=== PATIENT | male | born 1970 | race Two or more races ===

== ENCOUNTER 2018-12-24 16:42 | Emergency (ER) | payer MEDICAID ==
[~2018-12-24] VITALS: Ht 162.6 cm; Wt 81.0 kg
[2018-12-24 19:32] VITALS: BP 145/78
== END 2018-12-24 19:45 | disposition home or self-care (01) ==
LOC: ED 19:39
DX: E86.0 Dehydration (principal); M62.82 Rhabdomyolysis; N17.9 Acute kidney failure, unspecified
CPT/HCPCS: 36415; 80048; 82550; 82962; 83735; 85025; 96361; 96365; 96375; 99283; J2405; J2800; J7030

== ENCOUNTER 2018-12-24 21:52 | Emergency (ER) | payer MEDICAID ==
[~2018-12-24] VITALS: Ht 182.9 cm; Wt 84.0 kg
[2018-12-25 00:46] VITALS: BP 163/64
== END 2018-12-25 00:47 | disposition home or self-care (01) ==
LOC: ED 22:56
DX: R10.13 Epigastric pain (principal); E86.0 Dehydration
CPT/HCPCS: 36415; 74176; 80053; 81003; 82550; 83690; 85025; 96360; 96361; 99284; J7030